=== PATIENT | male | born 1970 | race Caucasian/White ===

== ENCOUNTER → 2020-02-15 | Outpatient (CLI) | payer BC, OTHER ==
[~2020-02-15] MED LIST: ASPIRIN CHEWABL81 MG PO; ATORVASTATIN CA20 MG PO; CLOPIDOGREL75 MG PO; CRESTOR 10 MG T10 MG PO; FLAGYL500 MG PO; IMDUR ER TAB 3030 MG PO; LIPITOR TAB 2020 MG PO; NITROGLYCERIN0.4 MG SL; PRINIVIL10 MG PO; ZOLPIDEM TARTRA10 MG PO
== END ==
LOC: KOH-I 11:23
DX: M54.5 Low back pain (principal); M54.6 Pain in thoracic spine; M62.838 Other muscle spasm; M47.817 Spondylosis without myelopathy or radiculopathy, lumbosacral region
CPT/HCPCS: 72148

== ENCOUNTER → 2020-05-29 | Outpatient (CLI) | payer BC, OTHER | LOC: HEART 5 14:30 | DX: I25.10 Atherosclerotic heart disease of native coronary artery without angina pectoris (principal); I34.0 Nonrheumatic mitral (valve) insufficiency | CPT/HCPCS: 93306 ==

== ENCOUNTER → 2020-06-06 | Outpatient (CLI) | payer BC, OTHER | LOC: KOH-I 12:10 | DX: G95.20 Unspecified cord compression (principal) | CPT/HCPCS: 72040 ==

== ENCOUNTER 2020-07-21 16:31 | Emergency (ER) | payer BC, OTHER ==
[~2020-07-21 16:31] MED LIST changes: -FLAGYL500 MG PO
[2020-07-21 17:30] LABS: RED BLOOD COUNT 5.54 M/UL (4.20-5.50); WHITE BLOOD COUNT 9.2 K/UL (4.5-11.0)
[2020-07-21 17:43] LABS: BUN/CREATININE RATIO 16 (0-10)
[2020-07-21] MEDS ORDERED: FLAGYL500 MG PO (18:41)
== END 2020-07-21 19:00 | disposition home or self-care (01) ==
LOC: ER1 16:31
PROVIDERS: Emergency Medicine
DX: R10.9 Unspecified abdominal pain (principal); R19.7 Diarrhea, unspecified; R11.2 Nausea with vomiting, unspecified; E78.5 Hyperlipidemia, unspecified; I10 Essential (primary) hypertension; I25.10 Atherosclerotic heart disease of native coronary artery without angina pectoris; Z90.89 Acquired absence of other organs; Z20.822 Contact with and (suspected) exposure to COVID-19
CPT/HCPCS: 71045; 80053; 81001; 82550; 82553; 83605; 83690; 83874; 84484; 85025; 87040; 99284; U0002

== ENCOUNTER → 2021-05-22 | Outpatient (CLI) | payer BC ==
[~2021-05-22] MED LIST changes: +FLAGYL500 MG PO
== END ==
LOC: HEART 5 14:46
DX: I49.3 Ventricular premature depolarization (principal); R00.2 Palpitations; I08.1 Rheumatic disorders of both mitral and tricuspid valves
CPT/HCPCS: 93306

== ENCOUNTER → 2021-07-22 | Outpatient (CLI) | payer BC | LOC: HEART 5 07-18 07:30 | DX: R06.02 Shortness of breath (principal) | CPT/HCPCS: 78452; A9502; J2785 ==

== ENCOUNTER → 2021-08-21 | Outpatient (CLI) | payer BC | LOC: CATH 08-06 10:00 | DX: R55 Syncope and collapse (principal) ==